=== PATIENT | female | born 2000 | race Caucasian/White ===

== ENCOUNTER 2025-03-10 11:59 | Inpatient (IN) | payer MEDICAID ==
[2025-03-10] MEDS ORDERED: Butorphanol 1 MG/ML SDV IVPUSH PRN (13:10)
[2025-03-10] MEDS ORDERED: Water For Irrigation,Sterile 1,000 ML Container IRR PRN (13:10)
[2025-03-10] MEDS ORDERED: Sodium Chloride 0.9% 2.5 ML Syringe FLUSH PRN (13:10)
[2025-03-10] MEDS ORDERED: Ondansetron 4 MG/2 ML SDV IVPUSH PRN (13:10)
[2025-03-10] MEDS ORDERED: Carboprost Tromethamine 250 MCG/1 mL Vial IM PRN (13:10)
[2025-03-10] MEDS ORDERED: Sodium Chloride 0.9% 10 ML Syringe FLUSH PRN (13:10)
[2025-03-10] MEDS: Lactated Ringers 1,000 ML IV SCH (13:25)
[2025-03-10 13:51] LABS: MEAN PLATELET VOLUME 10.5 fL (9.4-12.3); NRBC ABSOLUTE 0.00 K/uL (0.00-0.02); NRBC PERCENT 0.0 /100WBC (0.0-0.2); PLATELET COUNT,PLT 261 K/uL (150-400); RED BLOOD CELL COUNT 4.17 M/uL (4.10-5.30); WHITE BLOOD CELL COUNT,WBC 13.06 K/uL (3.9-11.3)
[2025-03-10] MEDS: Ropivacaine HCl/PF 400 MG in Premix Bag 1 BAG EPIDUR SCH (13:53)
[2025-03-10] MEDS ORDERED: ePHEDrine 50 MG/ML SDV IVPUSH PRN ×2 (14:03)
[2025-03-10] MEDS ORDERED: Ropivacaine HCl/PF 400 MG in Premix Bag 1 BAG EPIDUR SCH (14:15)
[2025-03-10] MEDS ORDERED: dexmedeTOMIDine HCl 200 MCG/2 ML SDV EPIDUR SCH ×2 (14:15)
[2025-03-10] MEDS: fentaNYL 100 MCG/2 ML SDV ONE (17:53)
[2025-03-10] MEDS: Ropivacaine HCl/PF 200 ML ONE (17:53)
[2025-03-10] MEDS: dexmedeTOMIDine HCl 200 MCG/2 ML SDV ONE (17:54)
[2025-03-10] MEDS: Oxytocin/0.9 % Sodium Chloride 30 UNIT/500 ML BAG IV SCH (18:36)
[2025-03-10 20:54] LABS: PH,UMBILICAL VENOUS 7.52 (7.25-7.45)
[2025-03-11] MEDS: Benzocaine/Menthol 20%-0.5% Spray 78 GM Cannister TOP PRN (00:40)
[2025-03-11] MEDS: Witch Hazel Medicated Pads 40/Jar TOP PRN (00:40)
[2025-03-11] MEDS: Lanolin 100% Cream 7 GM Tube TOP PRN (00:40)
== END 2025-03-11 22:06 | disposition home or self-care (01) | DRG 807 ==
LOC: MW.OBCHECK 11:59 → MW.OB 12:01 → MW.OBCHECK 13:10 → MW.OB 13:10 → OBSVTOIN 19:00 → MW.OB 21:21
PROVIDERS: ADMIT Obstetrics & Gynecology Obstetrics; ATTEND Obstetrics & Gynecology Obstetrics
PROC: 10E0XZZ Delivery of Products of Conception, External Approach (ICD-10-PCS; principal; 2025-03-10)
PROC: 3E0R3BZ Introduction of Anesthetic Agent into Spinal Canal, Percutaneous Approach (ICD-10-PCS; 2025-03-10)
PROC: 10907ZC Drainage of Amniotic Fluid, Therapeutic from Products of Conception, Via Natural or Artificial Opening (ICD-10-PCS; 2025-03-10)
DX: O99.824 Streptococcus B carrier state complicating childbirth (principal); Z37.0 Single live birth; Z3A.38 38 weeks gestation of pregnancy; Z86.16 Personal history of COVID-19; Z98.890 Other specified postprocedural states; Z79.899 Other long term (current) drug therapy
CPT/HCPCS: 36415; 51702; 59025; 59409; 82803; 85014; 85018; 85027; 86592; 86850; 86900; 86901; A9270-GY; J0290; J0665; J2590; J2795; J3010; J7120